=== PATIENT | female | born 1960 | race Caucasian/White ===

== ENCOUNTER 2016-05-12 10:09 | Emergency (ER) | payer OTHER ==
[2016-05-12 10:33] LABS: HEMOGLOBIN ISTAT 15.3 gm/dL; POTASSIUM ISTAT 4.1 mmol/L (3.5-5.0)
[2016-05-12] MEDS: ONDANSETRON PF 4 MG/2 ML VIAL. IV ONE (10:36)
[2016-05-12] MEDS: IV NORMAL SALINE 1,000ML 1,000 ML IV ONE (10:38)
[2016-05-12] MEDS: FENTANYL PF 100 MCG/2 ML VIAL. IV ONE ×2 (10:38→11:32)
[2016-05-12 10:55] LABS: ALK PHOS 94 U/L (46-116); ALT (SGPT) 28 U/L (14-59); AST (SGOT) 17 U/L (15-37); LIPASE 141 U/L (73-393)
--- NOTE | 2016-05-12 11:03 | ED.ADGEN ---
Past History Past Medical History: No Pertinent History Past Surgical History: No Surgical History Alcohol Use: None Drug Use: None Adult General HPI HPI Patient is a 55-year-old female presents emergency Department with a 3 hour history of left lower quadrant pain. She tells me that she has had similar pain in the past but is always resolved on its own quickly. Today her pain is not resolved. Nausea but has had no aniceto emesis. She has had no prehospital intervention. Patient denies any fevers, chills, vomiting, diarrhea, constipation, dysuria. Review of Systems Review of Systems Constitutional: Denies fever or chills [] Eyes: Denies change in visual acuity, redness, or eye pain [] HENT: Denies nasal congestion or sore throat [] Respiratory: Denies cough or shortness of breath [] Cardiovascular: No additional information not addressed in HPI [] GI: Denies abdominal pain, nausea, vomiting, bloody stools or diarrhea [] : Denies dysuria or hematuria [] Musculoskeletal: Denies back pain or joint pain [] Integument: Denies rash or skin lesions [] Neurologic: Denies headache, focal weakness or sensory changes [] Endocrine: Denies polyuria or polydipsia [] Current Medications Current Medications Current Medications Medications (Trade) Dose Ordered Sig/Jessica Start Time Stop Time Status Last Admin Dose Admin Fentanyl Citrate (Fentanyl 2ml Vial) 75 mcg 1X ONCE 05/12/16 12:00 05/12/16 12:00 DC 05/12/16 11:32 75 MCG Fentanyl Citrate 75 mcg 75 mcg 1X ONCE 05/12/16 10:50 05/12/16 10:51 DC 05/12/16 10:38 75 MCG Iohexol (Omnipaque 300 Mg/ml) 75 ml 1X ONCE 05/12/16 11:15 05/12/16 11:16 DC Ketorolac Tromethamine (Toradol) 15 mg 1X ONCE 05/12/16 12:00 05/12/16 12:00 DC 05/12/16 11:49 15 MG Ondansetron HCl (Zofran) 4 mg 1X ONCE 05/12/16 10:50 05/12/16 10:51 DC 05/12/16 10:36 4 MG Sodium Chloride (Iv Sodium Chloride 0.9% 1,000ml) 1,000 ml @ 1,000 mls/hr 1X ONCE 05/12/16 10:50 05/12/16 11:49 DC 05/12/16 10:38 1,000 MLS/HR Allergies Allergies Allergies Coded Allergies Type Severity Reaction Last Updated Verified No Known Drug Allergies 05/12/16 No Physical Exam Physical Exam Constitutional: Well developed, well nourished, no acute distress, non-toxic appearance. [] HENT: Normocephalic, atraumatic, bilateral external ears normal, oropharynx moist, no oral exudates, nose normal. [] Eyes: PERRLA, EOMI, conjunctiva normal, no discharge. [] Neck: Normal range of motion, no tenderness, supple, no stridor. [] Cardiovascular:Heart rate regular rhythm, no murmur [] Lungs & Thorax: Bilateral breath sounds clear to auscultation [] Abdomen: Bowel sounds normal, soft, left lower quadrant tenderness to palpation without peritoneal signs, no masses, no pulsatile masses. [] Skin: Warm, dry, no erythema, no rash. [] Back: No tenderness, no CVA tenderness. [] Extremities: No tenderness, no cyanosis, no clubbing, ROM intact, no edema. [] Neurologic: Alert and oriented X 3, normal motor function, normal sensory function, no focal deficits noted. [] Psychologic: Affect normal, judgement normal, mood normal. [] Current Patient Data Vital Signs Vital Signs Date Time Temp Pulse Resp B/P Pulse Ox O2 Delivery O2 Flow Rate FiO2 05/12/16 11:50 72 18 133/75 97 Room Air 05/12/16 10:11 98.2 Lab Results Laboratory Tests Test 05/12/16 10:24 05/12/16 10:30 05/12/16 11:08 Aspartate Amino Transferase (AST) 17U/L (15-37) Alanine Aminotransferase (ALT) 28U/L (14-59) Alkaline Phosphatase 94U/L (46-116) Lipase 141U/L (73-393) POC Hemoglobin 15.3gm/dL POC Hematocrit 45% POC Sodium 143mmol/L (135-145) POC Potassium 4.1mmol/L (3.5-5.0) POC Chloride 103mmol/L (98-110) POC Total CO2 26mmol/L (23-32) Anion Gap 19mmol/L (6-14) H POC Blood Urea Nitrogen 18mg/dL (8-26) POC Creatinine 0.8mg/dL (0.5-1.4) Glucose Level 109mg/dL (60-99) H POC Ionized Calcium (Lindsay) 1.17mmol/L (1.13-1.32) Urine Collection Type Unknown Urine Color Myriam Urine Clarity Hazy Urine pH 5.0 Urine Specific [place] >=1.030 Urine Protein 100 mg/dl (NEG-TRACE) Urine Glucose (UA) Negmg/dL (NEG) Urine Ketones (Stick) Negmg/dL (NEG) Urine Blood Large (NEG) Urine Nitrite Neg (NEG) Urine Bilirubin Neg (NEG) Urine Urobilinogen Dipstick 0.2mg/dL (0.2 mg/dL) Urine Leukocyte Esterase Neg (NEG) EKG EKG [] Radiology/Procedures Radiology/Procedures Indication left-sided pain. Axial images through the abdomen and pelvis were obtained. IV contrast, 75 cc of Omnipaque 300, was administered. No prior imaging of the abdomen is available. The lung bases are clear. The liver and spleen appear unremarkable. The gallbladder appears grossly normal. No pancreatic abnormality is seen. The adrenal glands appear normal. There are are no renal calculi on either side. There is, however, a 6 mm calculus impacted at the left UPJ with associated mild obstructive obstructive uropathy. There are probable parapelvic cysts associated with both kidneys. An additional finding in the abdomen is not seen. In the pelvis no focal mass or inflammatory process is seen. The appendix is seen in the right lower quadrant and appears unremarkable IMPRESSION: 6 mm calculus at the left UPJ with associated mild obstructive uropathy DICTATED AND SIGNED BY: BERNARDINO AGUILAR MD DATE: 05/12/16 1123 CC: ANJALI BARBA MD; [facility] ~[] Course & Med Decision Making Course & Med Decision Making Pertinent Labs and Imaging studies reviewed. (See chart for details) Patient feels significantly better after IV fluids and pain medicines here. She does have a left-sided kidney stone. We spent a significant amount of time discussing supportive care and follow-up instructions. She will follow-up with urology in the next 48-72 hours or return emergency department sooner she develops new or worsening symptoms. She is discharged home with prescriptions for Pam[place]in, Zofran, Toradol, and Flomax. [] Final Impression Final Impression Kidney stone [] Problems: Dragon Disclaimer Dragon Disclaimer This electronic medical record was generated, in whole or in part, using a voice recognition dictation system. ANJALI BARBA MD May 12, 2016 11:03
[2016-05-12] MEDS ORDERED: IOHEXOL 300 MG/ML 75 ML VIAL. IV ONE (11:15)
[2016-05-12] MEDS: IOHEXOL 300 MG/ML 75 ML VIAL. IV ONE (11:15)
--- NOTE | 2016-05-12 11:35 | RAD ---
Indication left-sided pain. Axial images through the abdomen and pelvis were obtained. IV contrast, 75 cc of Omnipaque 300, was administered. No prior imaging of the abdomen is available. The lung bases are clear. The liver and spleen appear unremarkable. The gallbladder appears grossly normal. No pancreatic abnormality is seen. The adrenal glands appear normal. There are are no renal calculi on either side. There is, however, a 6 mm calculus impacted at the left UPJ with associated mild obstructive obstructive uropathy. There are probable parapelvic cysts associated with both kidneys. An additional finding in the abdomen is not seen. In the pelvis no focal mass or inflammatory process is seen. The appendix is seen in the right lower quadrant and appears unremarkable IMPRESSION: 6 mm calculus at the left UPJ with associated mild obstructive uropathy
[2016-05-12 11:43] LABS: CLARITY,URINE HAZY; COLOR,URINE AMBER
[2016-05-12 11:44] LABS: BILIRUBIN,URINE NEG (NEG); GLUCOSE,URINE NEG (NEG); NITRITE,URINE NEG (NEG); UROBILINOGEN,URINE 0.2 mg/dL (0.2 mg/dL)
[2016-05-12] MEDS ORDERED: TAMS0.4C97 PO (11:49)
[2016-05-12] MEDS ORDERED: ONDA4TAB10 PO (11:49)
[2016-05-12] MEDS: KETOROLAC 15 MG/ML VIAL. IV ONE (11:49)
[2016-05-12] MEDS ORDERED: KETO10TA PO (11:49)
[2016-05-12] MEDS ORDERED: HYDR-971 PO (11:49)
[2016-05-12 11:50] VITALS: BP 133/75
== END 2016-05-12 11:56 | disposition home or self-care (01) ==
LOC: ER 10:09
DX: N20.0 Calculus of kidney (principal)
CPT/HCPCS: 36415; 74177; 80047; 81003; 83690; 84075; 84450; 84460; 96361; 96374; 96375; 96376; 99285; J1885; J2405; J3010; Q9967; J7030

== ENCOUNTER → 2016-06-06 | Outpatient (CLI) | payer OTHER ==
[2016-05-12 11:50] VITALS: BP 133/75
[~2016-06-06] MED LIST: HYDR-971 PO; KETO10TA PO; ONDA4TAB10 PO; TAMS0.4C97 PO
--- NOTE | 2016-06-06 09:27 | RAD ---
EXAM: MAMMO GAYATRI SCREENING BILATERAL. HISTORY: Screening. COMPARISON: 12/31/2008. FINDINGS: 2-D and 3-D tomosynthesis mammograms were obtained of both breasts in the CC and MLO projections. Computer-aided detection (CAD) was utilized. The breast parenchyma demonstrate scattered fibroglandular densities (tissue density B). No dominant suspicious mass, suspicious microcalcifications, or architectural distortion is identified. Medial, posterior, inferior right breast demonstrates a lesion. IMPRESSION: No mammographic evidence of malignancy. BI-RADS CATEGORY: 2 BENIGN FINDING RECOMMENDED FOLLOW-UP: 12M 12 MONTH FOLLOW-UP PQRS compliance statement: Patient information was entered into a reminder system with a target due date for the next mammogram. Mammography is a sensitive method for finding small breast cancers, but it does not detect them all and is not a substitute for careful clinical examination. A negative mammogram does not negate a clinically suspicious finding and should not result in delay in biopsying a clinically suspicious abnormality. "Our facility is accredited by the [employer] Mammography Program."
== END | disposition home or self-care (01) ==
LOC: MAMMO 07:52
PROVIDERS: ATTEND Physician Assistant
DX: Z12.31 Encounter for screening mammogram for malignant neoplasm of breast (principal)
CPT/HCPCS: 77063; G0202; 77067

== ENCOUNTER 2016-12-23 17:21 | Emergency (ER) | payer OTHER ==
[~2016-12-23] VITALS: Ht 157.5 cm; Wt 76.2 kg
[2016-12-23] MEDS ORDERED: KETOROLAC 30 MG/ML VIAL. IV ONE (18:15)
[2016-12-23] MEDS ORDERED: ONDANSETRON PF 4 MG/2 ML VIAL. IV ONE (18:15)
[2016-12-23 18:17] LABS: BASO # 0.1 x10^3/uL (0.0-0.2); BASO % 1 % (0-3); CALCIUM 8.7 mg/dL (8.5-10.1); CREATININE 0.8 mg/dL (0.6-1.0); EOS # 0.2 x10^3/uL (0.0-0.7); EOS % 2 % (0-3); GFR 74.5; HEMOGLOBIN 15.2 g/dL (12.0-15.5); LYMPH # 2.2 x10^3/uL (1.0-4.8); LYMPH % 21 % (24-48); MEAN CORPUSCULAR HEMOGLOBIN 31 pg (25-35); MEAN CORPUSCULAR HGB CONC 34 g/dL (31-37); MEAN CORPUSCULAR VOLUME 90 fL (79-100); MONO # 0.6 x10^3/uL (0.0-1.1); MONO % 6 % (0-9); NEUT # 7.3 x10^3uL (1.8-7.7); NEUT % 71 % (31-73); PLATELET COUNT 243 x10^3/uL (140-400); POTASSIUM 4.2 mmol/L (3.5-5.1); RED BLOOD COUNT 4.99 x10^6/uL (3.50-5.40); RED CELL DISTRIBUTION WIDTH 13.5 % (11.5-14.5); WHITE BLOOD COUNT 10.3 x10^3/uL (4.0-11.0)
--- NOTE | 2016-12-23 18:25 | PHYS DOC ---
Past History Past Medical History: Kidney Stones Past Surgical History: Tonsillectomy Smoking: Cigarettes, Greater than 1 pack/day Alcohol Use: None Drug Use: None Adult General Chief Complaint Chief Complaint: FLANK PAIN HPI HPI Pleasant otherwise healthy 56-year-old female with a known history of kidney stones last suffered 3 months ago with similar presentation begins flank pain 2 days ago. Patient is a flank pain was gone dull achy in the left flank with no radiation to her left lower abdomen described a sharp stabbing. It is moved and radiated from the left flank to left lower abdomen with no UTI symptoms, no vaginal bleeding, some mild nausea and no diarrhea no constipation no vomiting. Patient denies any trauma denies any sick contacts. Denies any fevers, chills, other symptoms like rash or localized night sweats or weight loss. Patient has not taken anything for pain pain is worse with range of motion or movement or walking. Review of Systems Review of Systems Constitutional: Denies fever or chills [] Eyes: Denies change in visual acuity, redness, or eye pain [] HENT: Denies nasal congestion or sore throat [] Respiratory: Denies cough or shortness of breath [] Cardiovascular: No additional information not addressed in HPI [] GI: He does complain of abdominal pain with nausea but no vomiting constipation or diarrhea : Denies dysuria or hematuria [] Musculoskeletal: Denies back pain or joint pain [] Integument: Denies rash or skin lesions [] Neurologic: Denies headache, focal weakness or sensory changes [] All other systems were reviewed and found to be within normal limits, except as documented in this note. Current Medications Current Medications Current Medications Medications (Trade) Dose Ordered Sig/Jessica Start Time Stop Time Status Last Admin Dose Admin Fentanyl Citrate (Fentanyl 2ml Vial) 50 mcg PRN Q15MIN PRN 12/23/16 18:15 12/24/16 18:14 Ketorolac Tromethamine (Toradol) 30 mg 1X ONCE 12/23/16 18:15 12/23/16 18:16 DC Ondansetron HCl (Zofran) 4 mg 1X ONCE 12/23/16 18:15 12/23/16 18:16 DC 12/23/16 18:21 4 MG Allergies Allergies Allergies Coded Allergies Type Severity Reaction Last Updated Verified Penicillins Allergy Unknown 12/23/16 Yes Physical Exam Physical Exam Vital signs recorded on the chart within normal limits Constitutional: Well developed, well nourished, no acute distress, non-toxic appearance. [] Cardiovascular:Heart rate regular rhythm, no murmur [] Lungs & Thorax: Bilateral breath sounds clear to auscultation [] Abdomen: Bowel sounds normal, soft, no tenderness, no masses, no pulsatile masses. No rash across her abdomen or flank [] Back: No tenderness, no CVA tenderness. [] Neurologic: Alert and oriented X 3, Psychologic: Affect normal, judgement normal, mood normal. [] Current Patient Data Vital Signs Vital Signs Date Time Temp Pulse Resp B/P (MAP) Pulse Ox O2 Delivery O2 Flow Rate FiO2 12/23/16 17:25 98.2 88 16 98 Room Air Lab Results Laboratory Tests Test 12/23/16 17:50 White Blood Count 10.3 x10^3/uL (4.0-11.0) Red Blood Count 4.99 x10^6/uL (3.50-5.40) Hemoglobin 15.2 g/dL (12.0-15.5) Hematocrit 45.0 % (36.0-47.0) Mean Corpuscular Volume 90 fL (79-100) Mean Corpuscular Hemoglobin 31 pg (25-35) Mean Corpuscular Hemoglobin Concent 34 g/dL (31-37) Red Cell Distribution Width 13.5 % (11.5-14.5) Platelet Count 243 x10^3/uL (140-400) Neutrophils (%) (Auto) 71 % (31-73) Lymphocytes (%) (Auto) 21 % (24-48) L Monocytes (%) (Auto) 6 % (0-9) Eosinophils (%) (Auto) 2 % (0-3) Basophils (%) (Auto) 1 % (0-3) Neutrophils # (Auto) 7.3 x10^3uL (1.8-7.7) Lymphocytes # (Auto) 2.2 x10^3/uL (1.0-4.8) Monocytes # (Auto) 0.6 x10^3/uL (0.0-1.1) Eosinophils # (Auto) 0.2 x10^3/uL (0.0-0.7) Basophils # (Auto) 0.1 x10^3/uL (0.0-0.2) Sodium Level 140 mmol/L (136-145) Potassium Level 4.2 mmol/L (3.5-5.1) Chloride Level 103 mmol/L (98-107) Carbon Dioxide Level 27 mmol/L (21-32) Anion Gap 10 (6-14) Blood Urea Nitrogen 13 mg/dL (7-20) Creatinine 0.8 mg/dL (0.6-1.0) Estimated GFR (Cockcroft-Gault) 74.5 Glucose Level 93 mg/dL (70-99) Calcium Level 8.7 mg/dL (8.5-10.1) EKG EKG [] Radiology/Procedures Radiology/Procedures [] Impressions: [place] [address] IMAGING REPORT Signed PATIENT: PANDA BLACKMAN ACCOUNT: [id number] : 1960 LOCATION: ER AGE: 56 SEX: F EXAM STATUS: REG ER ORD. PHYSICIAN: GILMER GLOVER DO REASON: L flank pain r/o stone PROCEDURE: CT ABDOMEN PELVIS WO CONTRAST CT abdomen and pelvis without contrast Indication:Left flank pain. History of kidney stones.. . Technique: Contiguous axial images are obtained through the abdomen and pelvis. No intravenous or oral contrast per request. Multiplanar reformatted images obtained. Exposure: One or more of the following individualized dose reduction techniques were utilized for this examination: 1. Automated exposure control 2. Adjustment of the mA and/or kV according to patient size 3. Use of iterative reconstruction technique. Comparison:None are available Findings: Urinary tracts: Mild left hydronephrosis. There is a small calculus within the left renal pelvis, but this appears to be proximal to the obstruction. This measures 5 mm diameter. There is mild inflammatory type stranding around the right renal pelvis and the proximal right ureter. There is no evidence of a more distal ureteric calculus, and no evidence of distal ureteric dilatation. Mild right hydronephrosis. No evidence of ureteric dilatation or obstructive calculus. Evaluation of solid viscera, bowel and vasculature is compromised by the noncontrast technique. Lower thorax: Lung bases are clear. Pneumoperitoneum:No gross pneumoperitoneum. Liver: Unremarkable Spleen: Unremarkable Pancreas: Unremarkable Kidneys: Small area of subtle low-density and calcification in the posterior right upper pole of the right kidney, likely an area of mild scarring. There appears to be minimal cortical volume loss here. Adrenals:No evidence of mass. Gallbladder: No calcified stone Aorta: Abdominal aorta is nonaneurysmal Lymph nodes: No significant enlargement GI tract: There is a small gas pocket adjacent to the duodenum, could be intraluminal, versus a duodenal diverticulum measuring about 2 cm. Duodenal ulcer could be considered but there is no adjacent inflammatory type stranding. No bowel obstruction. Appendix:Visualized, and appears within normal limits. Ascites: No gross ascites. Urinary bladder: Not opacified, but no apparent abnormality. No evidence of pelvic mass. Bones: No destructive process. IMPRESSION: 1. Mild left hydronephrosis, with inflammation around the collecting system. There is a small calculus within the renal pelvis but this does not appear to be obstructive. There is no evidence of an obstructive calculus. This could be due to a recently passed calculus. Other inflammatory etiologies such as ureteritis or pyelonephritis is possible. 2. Mild right hydronephrosis without obstructive calculus. 3. Small air pocket adjacent to the duodenum, about 2 cm. Considerations include a duodenal diverticulum or duodenal ulcer. No acute inflammatory type changes are seen in this area.. Electronically signed by: Mingo Gilliam MD (12/23/2016 6:36 PM) [facility] DICTATED AND SIGNED BY: MINGO GILLIAM MD DATE: 12/23/16 182 CC: JESÚS SWEENEY MD; [facility]; GILMER GLOVER DO ~ Course & Med Decision Making Course & Med Decision Making Pertinent Labs and Imaging studies reviewed. (See chart for details) []She presents with abdominal pain with a history of kidney stones. Patient's abdomen is soft nontender with no evidence of rebound guarding or organomegaly. Patient denies any fevers, chills, UTI symptoms. Laboratory Tests Test 12/23/16 17:50 White Blood Count 10.3 x10^3/uL (4.0-11.0) Red Blood Count 4.99 x10^6/uL (3.50-5.40) Hemoglobin 15.2 g/dL (12.0-15.5) Hematocrit 45.0 % (36.0-47.0) Mean Corpuscular Volume 90 fL (79-100) Mean Corpuscular Hemoglobin 31 pg (25-35) Mean Corpuscular Hemoglobin Concent 34 g/dL (31-37) Red Cell Distribution Width 13.5 % (11.5-14.5) Platelet Count 243 x10^3/uL (140-400) Neutrophils (%) (Auto) 71 % (31-73) Lymphocytes (%) (Auto) 21 % (24-48) L Monocytes (%) (Auto) 6 % (0-9) Eosinophils (%) (Auto) 2 % (0-3) Basophils (%) (Auto) 1 % (0-3) Neutrophils # (Auto) 7.3 x10^3uL (1.8-7.7) Lymphocytes # (Auto) 2.2 x10^3/uL (1.0-4.8) Monocytes # (Auto) 0.6 x10^3/uL (0.0-1.1) Eosinophils # (Auto) 0.2 x10^3/uL (0.0-0.7) Basophils # (Auto) 0.1 x10^3/uL (0.0-0.2) Urine Collection Type Unknown Urine Color Straw Urine Clarity Clear Urine pH 5.0 Urine Specific [place] >=1.030 Urine Protein 100 mg/dl (NEG-TRACE) Urine Glucose (UA) Neg mg/dL (NEG) Urine Ketones (Stick) Neg mg/dL (NEG) Urine Blood Mod (NEG) Urine Nitrite Neg (NEG) Urine Bilirubin Neg (NEG) Urine Urobilinogen Dipstick 0.2 mg/dL (0.2 mg/dL) Urine Leukocyte Esterase Neg (NEG) Urine RBC 6-10 /HPF (0-2) Urine WBC Occ /HPF (0-4) Urine Squamous Epithelial Cells Occ /LPF Urine Bacteria 0 /HPF (0-FEW) Urine Mucus Mod /LPF Sodium Level 140 mmol/L (136-145) Potassium Level 4.2 mmol/L (3.5-5.1) Chloride Level 103 mmol/L (98-107) Carbon Dioxide Level 27 mmol/L (21-32) Anion Gap 10 (6-14) Blood Urea Nitrogen 13 mg/dL (7-20) Creatinine 0.8 mg/dL (0.6-1.0) Estimated GFR (Cockcroft-Gault) 74.5 Glucose Level 93 mg/dL (70-99) Calcium Level 8.7 mg/dL (8.5-10.1) Laboratory work was reviewed by me at 6:45 PM urinalysis is clean for signs of infection with only a few white blood cells no bacteria red blood cells significant for likely kidney stone. Patient has evidence on CAT scan of a kidney stone that he may have passed with mild hydroureter patient is pain-free at this time with no fevers. I'll provide her analgesics and antiemetics and follow up with her urologist. Impression: Kidney stone, abdominal pain, diverticulosis of the duodenum Dragon Disclaimer Dragon Disclaimer This electronic medical record was generated, in whole or in part, using a voice recognition dictation system. Departure Departure: Impression: Primary Impression: Kidney stone Additional Impressions: Diverticulosis Abdominal pain Disposition: 01 HOME, SELF-CARE Condition: IMPROVED Referrals: [facility] (PCP) Patient Instructions: Diet for Kidney Stones, Kidney Stones Additional Instructions: My discharge plan Follow up: In addition patient is asked to followup with their primary doctor, within a week for followup examination and to address patient's ongoing medical conditions. . Patient is advised that in the Emergency Department primary complaints are addressed and only in light of known signs and symptoms. Patient should return immediately to the emergency department if new signs and symptoms develop or patient's condition worsens in any way. At time of discharge patient was in stable condition and had verbalized understanding of the discharge instructions. Although there is no obvious evidence of appendicitis or intra-abdominal catastrophe at this time requiring surgical intervention or immediate medical management you could still develop these issues in the future. I would ask that you return immediately for any increasing symptoms question concerns. Scripts Metoclopramide Hcl (REGLAN) 10 Mg Tablet 1 TAB PO TID, #20 TAB Prov: JESÚS SWEENEY MD 12/23/16 Tamsulosin Hcl (FLOMAX) 0.4 Mg Cap.er.24h 1 CAP PO DAILY, #30 CAP 0 Refills Prov: JESÚS SWEENEY MD 12/23/16 Hydrocodone Bit/Acetaminophen (HYDROCODONE-APAP 5-325 ) 1 Each Tablet 1 TAB PO PRN Q6HRS Y for PAIN, #14 TAB 0 Refills Prov: JESÚS SWEENEY MD 12/23/16 Naproxen (NAPROSYN) 500 Mg Tablet 1 TAB PO BID, #20 TAB 1 Refill Prov: JESÚS SWEENEY MD 12/23/16 Problem Qualifiers JESÚS SWEENEY MD Dec 23, 2016 18:25
[2016-12-23 18:26] LABS: BILIRUBIN,URINE NEG (NEG); CLARITY,URINE CLEAR; COLOR,URINE STRAW; GLUCOSE,URINE NEG (NEG); NITRITE,URINE NEG (NEG); UROBILINOGEN,URINE 0.2 mg/dL (0.2 mg/dL)
[2016-12-23 18:27] LABS: BACTERIA,URINE 0 /HPF (0-FEW); SQUAMOUS EPITHELIAL CELL,UR OCC /LPF; WBC,URINE OCC /HPF (0-4)
--- NOTE | 2016-12-23 18:40 | RAD ---
CT abdomen and pelvis without contrast Indication:Left flank pain. History of kidney stones.. . Technique: Contiguous axial images are obtained through the abdomen and pelvis. No intravenous or oral contrast per request. Multiplanar reformatted images obtained. Exposure: One or more of the following individualized dose reduction techniques were utilized for this examination: 1. Automated exposure control 2. Adjustment of the mA and/or kV according to patient size 3. Use of iterative reconstruction technique. Comparison:None are available Findings: Urinary tracts: Mild left hydronephrosis. There is a small calculus within the left renal pelvis, but this appears to be proximal to the obstruction. This measures 5 mm diameter. There is mild inflammatory type stranding around the right renal pelvis and the proximal right ureter. There is no evidence of a more distal ureteric calculus, and no evidence of distal ureteric dilatation. Mild right hydronephrosis. No evidence of ureteric dilatation or obstructive calculus. Evaluation of solid viscera, bowel and vasculature is compromised by the noncontrast technique. Lower thorax: Lung bases are clear. Pneumoperitoneum:No gross pneumoperitoneum. Liver: Unremarkable Spleen: Unremarkable Pancreas: Unremarkable Kidneys: Small area of subtle low-density and calcification in the posterior right upper pole of the right kidney, likely an area of mild scarring. There appears to be minimal cortical volume loss here. Adrenals:No evidence of mass. Gallbladder: No calcified stone Aorta: Abdominal aorta is nonaneurysmal Lymph nodes: No significant enlargement GI tract: There is a small gas pocket adjacent to the duodenum, could be intraluminal, versus a duodenal diverticulum measuring about 2 cm. Duodenal ulcer could be considered but there is no adjacent inflammatory type stranding. No bowel obstruction. Appendix:Visualized, and appears within normal limits. Ascites: No gross ascites. Urinary bladder: Not opacified, but no apparent abnormality. No evidence of pelvic mass. Bones: No destructive process. IMPRESSION: 1. Mild left hydronephrosis, with inflammation around the collecting system. There is a small calculus within the renal pelvis but this does not appear to be obstructive. There is no evidence of an obstructive calculus. This could be due to a recently passed calculus. Other inflammatory etiologies such as ureteritis or pyelonephritis is possible. 2. Mild right hydronephrosis without obstructive calculus. 3. Small air pocket adjacent to the duodenum, about 2 cm. Considerations include a duodenal diverticulum or duodenal ulcer. No acute inflammatory type changes are seen in this area.. Electronically signed by: Mingo Gilliam MD (12/23/2016 6:36 PM) [id number]
[2016-12-23] MEDS ORDERED: METO10TA81 PO (18:48)
[2016-12-23] MEDS ORDERED: TAMS0.4C97 PO (18:48)
[2016-12-23] MEDS ORDERED: HYDR-2758 PO (18:48)
[2016-12-23] MEDS ORDERED: NAPR500T PO (18:48)
[2016-12-23 19:00] VITALS: BP 124/84
== END 2016-12-23 19:07 | disposition home or self-care (01) ==
LOC: ER 17:21
DX: K57.10 Diverticulosis of small intestine without perforation or abscess without bleeding (principal); N20.0 Calculus of kidney; F17.210 Nicotine dependence, cigarettes, uncomplicated; Z87.442 Personal history of urinary calculi; Z88.0 Allergy status to penicillin
CPT/HCPCS: 36415; 74176; 80048; 81001; 85025; 96374; 96375; 99285; J1885; J2405; J3010

== ENCOUNTER 2017-12-24 20:17 | Emergency (ER) | payer OTHER ==
[~2017-12-24] VITALS: Ht 157.5 cm; Wt 71.7 kg
[~2017-12-24 20:17] MED LIST changes: +HYDR-2758 PO; +METO10TA81 PO; +NAPR-683 PO
[2017-12-24] MEDS ORDERED: IV NORMAL SALINE 1,000ML 1,000 ML IV SCH (20:49)
[2017-12-24 20:58] LABS: BASO # 0.1 x10^3/uL (0.0-0.2); BASO % 1 % (0-3); EOS # 0.3 x10^3/uL (0.0-0.7); EOS % 2 % (0-3); HEMATOCRIT 41.1 % (36.0-47.0); HEMOGLOBIN 13.8 g/dL (12.0-15.5); LYMPH # 2.6 x10^3/uL (1.0-4.8); LYMPH % 20 % (24-48); MEAN CORPUSCULAR HEMOGLOBIN 30 pg (25-35); MEAN CORPUSCULAR HGB CONC 34 g/dL (31-37); MEAN CORPUSCULAR VOLUME 89 fL (79-100); MONO # 0.9 x10^3/uL (0.0-1.1); MONO % 7 % (0-9); NEUT # 9.3 x10^3uL (1.8-7.7); NEUT % 71 % (31-73); PLATELET COUNT 272 x10^3/uL (140-400); WHITE BLOOD COUNT 13.1 x10^3/uL (4.0-11.0)
[2017-12-24] MEDS ORDERED: ONDANSETRON PF 4 MG/2 ML VIAL. IV ONE (21:00)
[2017-12-24] MEDS ORDERED: KETOROLAC 30 MG/ML VIAL. IV ONE (21:00)
[2017-12-24 21:06] LABS: CALCIUM 8.9 mg/dL (8.5-10.1); GFR 57.4; POTASSIUM 4.1 mmol/L (3.5-5.1)
[2017-12-24 21:10] LABS: BACTERIA,URINE FEW /HPF (0-FEW); BILIRUBIN,URINE NEG (NEG); CLARITY,URINE HAZY; COLOR,URINE AMBER; GLUCOSE,URINE NEG (NEG); NITRITE,URINE NEG (NEG); RBC,URINE >40 /HPF (0-2); UROBILINOGEN,URINE 0.2 mg/dL (0.2 mg/dL)
[2017-12-24 21:11] LABS: SQUAMOUS EPITHELIAL CELL,UR OCC /LPF
[2017-12-24] MEDS: HYDROmorphone PF 1 MG/ML DISP.SYRIN IV/SQ PRN ×2 (21:11→21:33)
--- NOTE | 2017-12-24 21:30 | RAD ---
CT abdomen and pelvis without contrast HISTORY: Severe left flank pain and abdomen pain. History of kidney stones. TECHNIQUE: Helical noncontrast CT imaging of the abdomen and pelvis was acquired. COMPARISON: CT abdomen and pelvis December 23, 2016. Abdomen findings: Moderate left renal hydronephrosis and extensive edema associated with a 7 mm obstructing ureteropelvic junction calculus, on prior imaging this calculus was not obstructive lying dependently within the renal pelvis. There is also increased density within the left renal pelvis leading up to this which could be pyogenic or hemorrhagic fluid or inflammatory or neoplastic urothelial thickening, which is new. 2 cm hypodensity left the left renal midpole anterior cortex likely a cyst. Tiny calcification right renal upper pole. Pancreas, adrenals, gallbladder, spleen and liver are unremarkable. 3 cm descending duodenal diverticulum posterior the head of the pancreas. Sigmoid diverticulosis. No obstruction or inflammation GI tract. Appendix is negative. No abdominal fluid. Lung bases and bones are unremarkable. Pelvis findings: No bladder calculi. Uterus, ovaries, rectum and bones are unremarkable. IMPRESSION: 1. Moderate left renal hydronephrosis associated with a 7 mm obstructing ureteropelvic junction calculus. There is increased luminal density of the renal pelvis and calyces which could be complex pyogenic or hemorrhagic fluid leading up to the calculus, or could represent inflammatory or neoplastic urothelial thickening. 2. The appendix is negative. Exposure: One or more of the following individualized dose reduction techniques were utilized for this examination: 1. Automated exposure control 2. Adjustment of the mA and/or kV according to patient size 3. Use of iterative reconstruction technique Electronically signed by: Levi Daniels MD (12/24/2017 9:27 PM) [facility]
[2017-12-24 22:15] VITALS: BP 123/74
[2017-12-24] MEDS ORDERED: OXYC-411 PO (22:17)
[2017-12-24] MEDS ORDERED: KETO10TA PO (22:17)
[2017-12-24] MEDS ORDERED: ONDA4TAB10 SL (22:17)
--- NOTE | 2017-12-24 22:18 | PHYS DOC ---
Past History Past Medical History: Depression, Kidney Stones Past Surgical History: Tonsillectomy Smoking: Cigarettes, Greater than 1 pack/day Alcohol Use: Rarely Drug Use: None Adult General Chief Complaint Chief Complaint: FLANK PAIN HPI HPI Patient is a 57-year-old female who presents with complaint of left-sided flank pain that started a few hours ago. Patient states that pain is progressively been getting worse and she currently rates pain at a 9 out of 10. She states that initially the pain was in her posterior flank but has progressively radiated around to wear its radiating into her left groin now. She indicates that she has had nausea but no vomiting. She states that she has had kidney stones in the past and this is very similar to prior episodes. She denies any chest pain or shortness of breath. She also denies any fever. Patient states that nothing seems to worsen or improve her symptoms. Review of Systems Review of Systems Constitutional: Denies fever or chills [] Respiratory: Denies cough or shortness of breath [] Cardiovascular: No additional information not addressed in HPI [] GI: Denies abdominal pain. Admits to nausea without vomiting. [] : Denies dysuria or hematuria. Complains of left-sided flank pain. [] Musculoskeletal: Complains of left-sided back pain.[] All other systems were reviewed and found to be within normal limits, except as documented in this note. Current Medications Current Medications Current Medications Medications (Trade) Dose Ordered Sig/Jessica Start Time Stop Time Status Last Admin Dose Admin Hydromorphone HCl (Dilaudid) 0.5 mg PRN Q15MIN PRN 12/24/17 21:00 12/25/17 20:59 12/24/17 21:33 0.5 MG Ketorolac Tromethamine (Toradol 30mg Vial) 30 mg 1X ONCE 12/24/17 21:00 12/24/17 21:02 DC 12/24/17 21:09 30 MG Ondansetron HCl (Zofran) 4 mg 1X ONCE 12/24/17 21:00 12/24/17 21:02 DC 12/24/17 21:06 4 MG Sodium Chloride 1,000 ml @ 1,000 mls/hr Q1H 12/24/17 20:49 12/24/17 21:48 DC 12/24/17 21:07 1,000 MLS/HR Allergies Allergies Allergies Coded Allergies Type Severity Reaction Last Updated Verified Penicillins Allergy Unknown 12/23/16 Yes Physical Exam Physical Exam Constitutional: Well developed, well nourished, in mild distress. [] HENT: Normocephalic, atraumatic, bilateral external ears normal, oropharynx moist, no oral exudates, nose normal. [] Eyes: PERRLA, EOMI, conjunctiva normal, no discharge. [] Neck: Normal range of motion, no tenderness, supple, no stridor. [] Cardiovascular:Heart rate regular rhythm [] Lungs & Thorax: Bilateral breath sounds clear to auscultation [] Abdomen: Bowel sounds normal, soft, no tenderness. [] Skin: Warm, dry, no erythema, no rash. [] Extremities: No tenderness, no cyanosis, no clubbing, ROM intact, no edema. [] Neurologic: Alert and oriented X 3, normal motor function, normal sensory function, no focal deficits noted. [] Current Patient Data Vital Signs Vital Signs Date Time Temp Pulse Resp B/P (MAP) Pulse Ox O2 Delivery O2 Flow Rate FiO2 12/24/17 21:45 76 16 127/67 (87) 97 Room Air 12/24/17 20:25 97.6 Lab Results Laboratory Tests Test 12/24/17 20:44 White Blood Count 13.1 x10^3/uL (4.0-11.0) H Red Blood Count 4.60 x10^6/uL (3.50-5.40) Hemoglobin 13.8 g/dL (12.0-15.5) Hematocrit 41.1 % (36.0-47.0) Mean Corpuscular Volume 89 fL (79-100) Mean Corpuscular Hemoglobin 30 pg (25-35) Mean Corpuscular Hemoglobin Concent 34 g/dL (31-37) Red Cell Distribution Width 13.0 % (11.5-14.5) Platelet Count 272 x10^3/uL (140-400) Neutrophils (%) (Auto) 71 % (31-73) Lymphocytes (%) (Auto) 20 % (24-48) L Monocytes (%) (Auto) 7 % (0-9) Eosinophils (%) (Auto) 2 % (0-3) Basophils (%) (Auto) 1 % (0-3) Neutrophils # (Auto) 9.3 x10^3uL (1.8-7.7) H Lymphocytes # (Auto) 2.6 x10^3/uL (1.0-4.8) Monocytes # (Auto) 0.9 x10^3/uL (0.0-1.1) Eosinophils # (Auto) 0.3 x10^3/uL (0.0-0.7) Basophils # (Auto) 0.1 x10^3/uL (0.0-0.2) Urine Collection Type Unknown Urine Color Myriam Urine Clarity Hazy Urine pH 5.0 Urine Specific [place] >=1.030 Urine Protein 100 mg/dl (NEG-TRACE) Urine Glucose (UA) Neg mg/dL (NEG) Urine Ketones (Stick) Neg mg/dL (NEG) Urine Blood Large (NEG) Urine Nitrite Neg (NEG) Urine Bilirubin Neg (NEG) Urine Urobilinogen Dipstick 0.2 mg/dL (0.2 mg/dL) Urine Leukocyte Esterase Neg (NEG) Urine RBC >40 /HPF (0-2) Urine WBC 1-4 /HPF (0-4) Urine Squamous Epithelial Cells Occ /LPF Urine Bacteria Few /HPF (0-FEW) Urine Mucus Slight /LPF Sodium Level 142 mmol/L (136-145) Potassium Level 4.1 mmol/L (3.5-5.1) Chloride Level 106 mmol/L (98-107) Carbon Dioxide Level 25 mmol/L (21-32) Anion Gap 11 (6-14) Blood Urea Nitrogen 22 mg/dL (7-20) H Creatinine 1.0 mg/dL (0.6-1.0) Estimated GFR (Cockcroft-Gault) 57.4 Glucose Level 123 mg/dL (70-99) H Calcium Level 8.9 mg/dL (8.5-10.1) EKG EKG [] Radiology/Procedures Radiology/Procedures [] Impressions: CT demonstrates left sided ureteral stone measuring approximately 7 mm at the left UPJ. Course & Med Decision Making Course & Med Decision Making Pertinent Labs and Imaging studies reviewed. (See chart for details) [] Dragon Disclaimer Dragon Disclaimer This electronic medical record was generated, in whole or in part, using a voice recognition dictation system. Departure Departure: Impression: Primary Impression: Ureterolithiasis Disposition: 01 HOME, SELF-CARE Condition: STABLE Referrals: [facility] (PCP) ERIKA GRAY MD Patient Instructions: Kidney Stones Scripts Ketorolac Tromethamine (KETOROLAC TROMETHAMINE) 10 Mg Tablet 1 TAB PO PRN Q6HRS PRN for PAIN, #20 TAB Prov: JIMMY THEODORE Jr. DO 12/24/17 Ondansetron (ZOFRAN ODT) 4 Mg Tab.rapdis 1 TAB SL Q8HRS PRN for NAUSEA/VOMITING, #15 TAB Prov: JIMMY THEODORE Jr. DO 12/24/17 Oxycodone Hcl/Acetaminophen (OXYCODONE-ACETAMINOPHEN 10-325) 1 Each Tablet 1 TAB PO Q4HRS PRN for PAIN, #20 TAB Prov: JIMMY THEODORE Jr. DO 12/24/17 JIMMY THEODORE Jr. DO Dec 24, 2017 22:18
== END 2017-12-24 22:27 | disposition home or self-care (01) ==
LOC: ER 20:17
DX: N13.2 Hydronephrosis with renal and ureteral calculous obstruction (principal); F17.210 Nicotine dependence, cigarettes, uncomplicated; Z87.442 Personal history of urinary calculi; Z88.0 Allergy status to penicillin
CPT/HCPCS: 36415; 74176; 80048; 81001; 85025; 96374; 96375; 99285; J1170; J1885; J2405; J7030

== ENCOUNTER → 2019-06-04 | Outpatient (CLI) | payer OTHER ==
[~2019-06-04] MED LIST changes: +HYDR-2155 PO; -HYDR-2758 PO; +HYDR-3165 PO; -HYDR-971 PO; +ONDA4TAB10 SL; +OXYC-411 PO
--- NOTE | 2019-06-04 09:21 | RAD ---
EXAM: CT Abdomen and Pelvis without IV contrast INDICATION: Left flank pain TECHNIQUE: Multi-detector row CT images were acquired from the lung bases through the abdomen and pelvis without the use of IV contrast. Sagittal and coronal images were acquired from the transaxial data. All CT scans performed at this facility utilize dose optimization techniques as appropriate to the exam, including the following: Automated exposure control and adjustment of the mA and/or KV according to patient size (this includes techniques or standardized protocols for targeted exams where dose is indication/reason for exam). ORAL CONTRAST: None COMPARISON: 12/24/2017 FINDINGS: The absence of IV contrast limits evaluation of soft tissue pathology. LOWER CHEST: Unremarkable LIVER: Unremarkable BILIARY SYSTEM: Gallbladder is unremarkable. Bile ducts are not dilated. PANCREAS: Unremarkable SPLEEN: Unremarkable ADRENALS: Unremarkable KIDNEYS & URETERS: Fullness in the right renal pelvis is compatible with parapelvic cysts. No definite right hydronephrosis and no right hydrocele ureter. There is focal cortical thinning with curvilinear density in the right renal cortex suspicious for calcification and scarring from previous inflammation. The right kidney is otherwise unremarkable. The left kidney shows interval worsening of left hydronephrosis with caliber transition at the ureteropelvic junction. A kidney stone present at the UPJ has migrated proximally (more in the kidney than down the ureter) and measures 1 cm in diameter. It no longer appears to lie at the ureteropelvic junction. Left ureteral caliber transition occurs as it courses behind the left gonadal vein. BLADDER: Unremarkable REPRODUCTIVE ORGANS: Unremarkable GASTROINTESTINAL: No findings of bowel obstruction, perforation or acute inflammation. There are scattered colonic diverticuli without findings of acute diverticulitis. The appendix is normal. MESENTERY/PERITONEUM/RETROPERITONEUM: Rim calcified 1.2 cm nodule in the mesentery consistent with fat necrosis. It abuts the transverse colon and could alternatively represent a diverticulum with inspissated debris. VASCULAR: Unremarkable LYMPH NODES: No adenopathy OSSEOUS & SOFT TISSUES: Unremarkable IMPRESSION: There is persistent, perhaps worsening left hydronephrosis with periureteral stranding, suspicious for acute inflammation, possible pyonephrosis, despite proximal migration of the 1 cm left kidney stone. No evidence of an abscess. Electronically signed by: Katy Serrano MD (06/04/2019 9:18 AM) [id number]
== END | disposition home or self-care (01) ==
LOC: CT 08:22
PROVIDERS: ATTEND Physician Assistant
DX: N20.0 Calculus of kidney (principal); N13.30 Unspecified hydronephrosis
CPT/HCPCS: 74176

== ENCOUNTER → 2019-07-21 | Outpatient (CLI) | payer OTHER ==
--- NOTE | 2019-07-21 10:49 | RAD ---
AP abdomen radiograph 07/21/2019 CLINICAL HISTORY: Abdominal pain. Comparison is made to the patient's CT scan of the abdomen and pelvis dated 06/04/2019. A 9 mm calculus overlies the left renal pelvis which appears slightly smaller in size which may reflect recent lithotripsy. No ureteral calculus is seen. Calcifications are seen within the pelvis consistent with phleboliths. The abdominal bowel gas pattern is nonobstructive. The osseous structures are grossly intact. IMPRESSION: 9 mm calculus overlies the left renal pelvis which appears decreased in size slightly since the patient's previous CT scan which may reflect recent lithotripsy. No ureteral calculus is seen. Electronically signed by: Wild Courtney MD (07/21/2019 10:46 AM) [id number]
== END ==
LOC: DXRAD 09:23
PROVIDERS: ATTEND Urology
DX: N20.0 Calculus of kidney (principal)
CPT/HCPCS: 74018

== ENCOUNTER → 2020-11-11 | Outpatient (CLI) | payer OTHER ==
[~2020-11-11] MED LIST changes: -OXYC-411 PO; +OXYC1TAB20 PO
--- NOTE | 2020-11-12 17:30 | RAD ---
DATE: 11/11/2020 EXAM: MG BILAT SCREEN+GAYATRI HISTORY: Screening COMPARISON: 06/06/2016 This study was interpreted with the benefit of Computerized Aided Detection (CAD). Breast Density: SCATTERED The breast parenchyma shows scattered fibroglandular densities. Breast pare nchyma level B. FINDINGS: No suspicious mass, calcifications, architectural distortion. IMPRESSION: No evidence of malignancy. BI-RADS CATEGORY: 1 NEGATIVE RECOMMENDED FOLLOW-UP: 12M 12 MONTH FOLLOW-UP PQRS compliance statement: Patient information was entered into a reminder system with a target due d ate for the next mammogram. Mammography is a sensitive method for finding small breast cancers, but it does not detect them all a nd is not a substitute for careful clinical examination. A negative mammogram does not negate a clin ically suspicious finding and should not result in delay in biopsying a clinically suspicious abnorma lity. "Our facility is accredited by the [employer] Mammography Program." Electronically signed by: Pallavi Valentino MD (11/12/2020 5:28 PM) [id number]
== END ==
LOC: MAMMO 15:13
DX: Z12.31 Encounter for screening mammogram for malignant neoplasm of breast (principal)
CPT/HCPCS: 77063; 77067